=== PATIENT | female | born 1975 | race Two or more races ===

== ENCOUNTER → 2022-05-28 | Emergency (ER) | payer MEDICAID, OTHER ==
[~2022-05-28] VITALS: Ht 149.9 cm; Wt 81.3 kg
[2022-05-28 18:52] VITALS: BP 141/77
== END | disposition left against medical advice (07) ==
LOC: ER 17:45
DX: J02.9 Acute pharyngitis, unspecified (principal); Z53.21 Procedure and treatment not carried out due to patient leaving prior to being seen by health care provider